=== PATIENT | male | born 1995 | race Caucasian/White ===

== ENCOUNTER 2016-10-22 13:18 | Emergency (ER) | payer BC ==
[2016-10-22 13:39] VITALS: BP 142/81
--- NOTE | 2016-10-22 14:15 | RAD ---
INDICATION: Left ankle pain and swelling one day after twisting injury COMPARISON: None. TECHNIQUE: 3 views of the left ankle were obtained. FINDINGS: The well corticated bones exhibit normal alignment. Joint spaces appear maintained. No fracture is seen. IMPRESSION: Normal ankle radiograph. If the patient's symptoms persist, follow-up imaging is recommended.
--- NOTE | 2016-10-26 07:20 | UC ---
Lower Extremity/Ankle HPI - HPI Summary HPI Summary: left ankle pain x 1 day inversion left ankle injury one day ago + pain and swelling of the left ankle - History of Current Complaint Chief Complaint: UCLowerExtremity Stated Complaint: LEFT ANKLE INJURY Time Seen by Provider: 10/22/16 13:50 Hx Obtained From: Patient Onset/Duration: Sudden Onset, Lasting Days - 1, Still Present Severity Initially: Moderate Severity Currently: Moderate Pain Intensity: 2 Pain Scale Used: 0-10 Numeric Aggravating Factor(s): Standing, Ambulation Alleviating Factor(s): Rest, Elevation, Ice Able to Bear Weight: Yes - Allergies/Home Medications Allergies/Adverse Reactions: Allergies Allergy/AdvReac Type Severity Reaction Status Date / Time Metoclopramide [From BedyCasalan] Allergy Agitation Verified 10/22/16 13:32 Prochlorperazine Allergy Agitation Verified 10/22/16 13:32 [From Compazine] Home Medications: Home Medications Ibuprofen TAB* [Advil TAB*] 400 mg PO Q6H PRN 10/22/16 [History Confirmed ] PMH/Surg Hx/FS Hx/Imm Hx Previously Healthy: Yes - Surgical History Surgical History: Yes Surgery Procedure, Year, and Place: t/a - Family History Known Family History: Positive: Hypertension - Social History Alcohol Use: Weekly Substance Use Type: Marijuana Substance Use Comment - Amount & Last Used: OCCASIONAL Smoking Status (MU): Never Smoked Tobacco Review of Systems Constitutional: Negative Skin: Negative Eyes: Negative ENT: Negative Respiratory: Negative Cardiovascular: Negative Gastrointestinal: Negative Genitourinary: Negative Motor: Negative Neurovascular: Negative Musculoskeletal: Arthralgia - left ankle pain Neurological: Negative Psychological: Negative All Other Systems Reviewed And Are Negative: Yes Physical Exam Triage Information Reviewed: Yes Appearance: Well-Appearing, No Pain Distress, Well-Nourished Vital Signs: Initial Vital Signs Temp 98.8 F 10/22/16 13:33 Pulse 64 10/22/16 13:33 Resp 18 10/22/16 13:33 BP 142/81 10/22/16 13:33 Pulse Ox 97 10/22/16 13:33 Vital Signs Reviewed: Yes Eye Exam: Normal Eyes: Positive: Conjunctiva Clear ENT: Positive: Normal ENT inspection, Hearing grossly normal, Pharynx normal Neck exam: Normal Respiratory: Positive: Chest non-tender, Lungs clear, Normal breath sounds Cardiovascular: Positive: RRR, No Murmur, Pulses Normal Musculoskeletal: Positive: Other: - left ankle : + swelling lateral ankle , + tenderness lateral ankle , goot ROM , decrease strength Skin Exam: Normal Lower Extremity Course/Dx - Differential Dx/Diagnosis Provider Diagnoses: left ankle sprain Discharge - Discharge Plan Condition: Stable Disposition: HOME Patient Education Materials: Ankle Sprain (ED) Forms: *Work Release Referrals: [facility] [[employer], APPLICATION, OTHER] - 7 Days
== END 2016-10-22 14:38 | disposition home or self-care (01) ==
LOC: UCCORT 13:18
DX: S93.402A Sprain of unspecified ligament of left ankle, initial encounter (principal); X58.XXXA Exposure to other specified factors, initial encounter; Y93.9 Activity, unspecified; Y92.9 Unspecified place or not applicable; Z88.8 Allergy status to other drugs, medicaments and biological substances
CPT/HCPCS: 99213; G0463

== ENCOUNTER 2017-08-08 14:39 | Emergency (ER) | payer BC ==
[2017-08-08 15:07] VITALS: BP 124/65
[2017-08-08] MEDS ORDERED: Ondansetron ODT TAB* 4 MG PO ONE (15:53)
[2017-08-08] MEDS ORDERED: Naproxen TAB* 250 MG PO ONE (15:53)
--- NOTE | 2017-08-08 16:04 | UC ---
Headache HPI - HPI Summary HPI Summary: 21 year old male with history of migraine here with headache since yesterday. Patient reports bilateral, throbbing headache with nausea and one episode of vomiting. He reports he gets headache like this 1-2/year. No phonophobiba or photophobia but reports osmophobia. No weakness or paresthesia. - History Of Current Complaint Chief Complaint: UCHeadache Stated Complaint: MIGRAINE Time Seen by Provider: 08/08/17 15:46 Onset/Duration: Sudden Onset, Gradual Onset Onset Of Symptoms: Gradual Pain Intensity: 9 Timing: Constant Character: Throbbing Location of Headache: Temporal Associated Signs And Symptoms: Positive: Nausea - Allergies/Home Medications Allergies/Adverse Reactions: Allergies Allergy/AdvReac Type Severity Reaction Status Date / Time metoclopramide [From Reglan] Allergy Agitation Verified 08/08/17 15:07 prochlorperazine Allergy Agitation Verified 08/08/17 15:07 PMH/Surg Hx/FS Hx/Imm Hx Previously Healthy: No - Surgical History Surgical History: Yes Surgery Procedure, Year, and Place: ear tubes. tonsillectomy with adenoid removal - Family History Known Family History: Positive: Hypertension - Social History Alcohol Use: Weekly Substance Use Type: Marijuana Substance Use Comment - Amount & Last Used: OCCASIONAL Smoking Status (MU): Never Smoked Tobacco Review of Systems Constitutional: Negative Skin: Negative Eyes: Negative ENT: Negative Respiratory: Negative Cardiovascular: Negative Gastrointestinal: Negative Genitourinary: Negative Motor: Negative Neurovascular: Negative Musculoskeletal: Negative Neurological: Headache Psychological: Negative All Other Systems Reviewed And Are Negative: Yes Physical Exam Triage Information Reviewed: Yes Appearance: Well-Appearing, No Pain Distress Vital Signs: Initial Vital Signs Temp 37.2 C 08/08/17 15:01 Pulse 61 08/08/17 15:01 Resp 20 08/08/17 15:01 BP 124/65 08/08/17 15:01 Pulse Ox 100 08/08/17 15:01 Eye Exam: Normal Respiratory Exam: Normal Cardiovascular Exam: Normal Abdominal Exam: Normal Musculoskeletal Exam: Normal Neurological Exam: Normal Skin Exam: Normal Headache Course/Dx - Differential Dx/Diagnosis Differential Diagnosis/HQI/PQRI: Migraine, Sinus Headache, Tension Headache Provider Diagnoses: Migraine Discharge - Sign-Out/Discharge Documenting (check all that apply): Discharge/Admit/Transfer - Discharge Plan Condition: Good Disposition: HOME Prescriptions: Naproxen [Naproxen 500 mg tab] 500 mg PO BID PRN #20 tablet PRN Reason: Headache Ondansetron [Zofran Odt] 4 mg PO Q8HR PRN #20 tab.rapdis PRN Reason: Nausea Patient Education Materials: Migraine Headache (ED) Forms: *Work Release Referrals: No Primary Care Phys,NOPCP [Primary Care Provider] - - Billing Disposition and Condition Condition: GOOD Disposition: HOME
== END 2017-08-08 16:18 | disposition home or self-care (01) ==
LOC: UCCORT 14:39
DX: G43.909 Migraine, unspecified, not intractable, without status migrainosus (principal); Z88.8 Allergy status to other drugs, medicaments and biological substances
CPT/HCPCS: 99212; A9270-GY; G0463

== ENCOUNTER 2018-06-21 09:39 | Emergency (ER) | payer BC ==
[2018-06-21 09:56] VITALS: BP 124/68
[2018-06-21] MEDS ORDERED: Ketorolac INJ* 30 MG/ML 1 ML VIAL IM ONE (10:08)
[2018-06-21] MEDS ORDERED: Ondansetron ODT TAB* 4 MG PO ONE (10:09)
--- NOTE | 2018-06-21 10:18 | UC ---
Headache HPI - HPI Summary HPI Summary: Long history of migraine since age 10. Mother and grandmother has history of them. This started 5am. Feels similar to prior. No fever or neck stiffness. No neurologic defecits. - History Of Current Complaint Chief Complaint: UCHeadache Stated Complaint: MIGRAINE Time Seen by Provider: 06/21/18 09:48 Hx Obtained From: Patient Onset/Duration: Other - Awoke from sleep. Initially Headache Was: Moderate Pain Intensity: 4 Timing: Constant Character: Typical Headache, Migraine Location of Headache: Temporal Aggravating Factor(s): Bright Lights, Other - smells. Allevating Factor(s): Rest, Medication Associated Signs And Symptoms: Positive: Nausea, Vomiting. Negative: Fever, Neck Pain, Neck Stiffness, Decreased LOC, Visual Changes - Allergies/Home Medications Allergies/Adverse Reactions: Allergies Allergy/AdvReac Type Severity Reaction Status Date / Time metoclopramide [From Reglan] Allergy Agitation Verified 08/08/17 15:07 prochlorperazine Allergy Agitation Verified 08/08/17 15:07 PMH/Surg Hx/FS Hx/Imm Hx Previously Healthy: No - migraine. - Surgical History Surgical History: Yes Surgery Procedure, Year, and Place: ear tubes. tonsillectomy with adenoid removal - Family History Known Family History: Positive: Hypertension, Other - migraines. - Social History Alcohol Use: Weekly Alcohol Amount: 2 Substance Use Type: Marijuana Substance Use Comment - Amount & Last Used: OCCASIONAL-last usw was 06/19/18 Smoking Status (MU): Never Smoked Tobacco Review of Systems All Other Systems Reviewed And Are Negative: Yes Neurological: Positive: Headache Physical Exam Triage Information Reviewed: Yes Appearance: No Pain Distress, Well-Nourished, Pain Distress - Non toxic and pleasant but holding head with lights off sitting up. Vital Signs: Initial Vital Signs Temp 98.7 F 06/21/18 09:48 Pulse 52 06/21/18 09:48 Resp 20 06/21/18 09:48 BP 124/68 06/21/18 09:48 Pulse Ox 99 06/21/18 09:48 Vital Signs Reviewed: Yes Eyes: Positive: Conjunctiva Clear, Other: - JAIRO. Fundoscopic tamir no papilledema. ENT Exam: Normal ENT: Positive: Hearing grossly normal, Pharynx normal, Pharyngeal erythema, TMs normal, Uvula midline. Negative: Nasal congestion, Nasal drainage, TM bulging, TM dull, TM red, Tonsillar swelling, Tonsillar exudate, Trismus, Muffled voice, Sinus tenderness Neck exam: Normal Neck: Positive: Supple, Nontender, No Lymphadenopathy. Negative: Nuchal Rigidity Respiratory: Positive: Lungs clear, Normal breath sounds, No respiratory distress, No accessory muscle use, Respiratory distress, Decreased breath sounds Cardiovascular: Positive: No Murmur, Pulses Normal, Brisk Capillary Refill Abdomen Description: Positive: No Organomegaly, Soft. Negative: Distended, Guarding Musculoskeletal: Positive: Strength Intact, ROM Intact, No Edema Neurological: Positive: Alert, Muscle Tone Normal. Negative: Fatigued Psychological: Positive: Age Appropriate Behavior Skin: Negative: Rashes Headache Course/Dx - Differential Dx/Diagnosis Provider Diagnosis: Migraine Discharge - Sign-Out/Discharge Documenting (check all that apply): Patient Departure All imaging exams completed and their final reports reviewed: No Studies - Discharge Plan Condition: Good Disposition: HOME Prescriptions: Naproxen [Naproxen 500 mg tab] 500 mg PO BID PRN #20 tablet PRN Reason: Headache Ondansetron ODT TAB* [Zofran 4 MG Odt TAB*] 4 mg PO Q8H PRN #12 tab.odt PRN Reason: Headache SUMAtriptan TAB* [Imitrex TAB*] 50 mg PO BID PRN #12 tab PRN Reason: Headache Patient Education Materials: Migraine Headache (ED) Referrals: No Primary Care Phys,NOPCP [Primary Care Provider] - [facility] [place] [facility] [Outside] - Billing Disposition and Condition Condition: GOOD Disposition: Home
== END 2018-06-21 10:43 | disposition home or self-care (01) ==
LOC: UCCORT 09:39
DX: G43.909 Migraine, unspecified, not intractable, without status migrainosus (principal); Z88.8 Allergy status to other drugs, medicaments and biological substances
CPT/HCPCS: 96372; 99212; A9270-GY; G0463; J1885

== ENCOUNTER 2018-09-06 11:57 | Emergency (ER) | payer BC ==
[2018-09-06 12:10] VITALS: BP 137/86
--- NOTE | 2018-09-06 12:20 | UC ---
Ear Complaint HPI - HPI Summary HPI Summary: 22-year-old male who has had cold symptoms over the past few days and today his left ear is clogged. He denies any pain or fever. - History of Current Complaint Chief Complaint: UCEar Stated Complaint: EAR PAIN Time Seen by Provider: 09/06/18 12:16 Hx Obtained From: Patient Onset/Duration: Gradual Onset Severity Initially: Mild Severity Currently: Mild Pain Intensity: 0 Aggravating Factors: Nothing Alleviating Factors: Nothing Associated Signs/Symptoms: Positive: Hearing Loss - Allergies/Home Medications Allergies/Adverse Reactions: Allergies Allergy/AdvReac Type Severity Reaction Status Date / Time metoclopramide [From Reglan] Allergy Agitation Verified 09/06/18 12:09 prochlorperazine Allergy Agitation Verified 09/06/18 12:09 PMH/Surg Hx/FS Hx/Imm Hx Previously Healthy: Yes Neurological History: Migraine - Surgical History Surgical History: Yes Surgery Procedure, Year, and Place: ear tubes. tonsillectomy with adenoid removal - Family History Known Family History: Positive: Hypertension, Other - migraines. - Social History Alcohol Use: Weekly Alcohol Amount: 2 Substance Use Type: Marijuana Substance Use Comment - Amount & Last Used: OCCASIONAL Smoking Status (MU): Never Smoked Tobacco Review of Systems All Other Systems Reviewed And Are Negative: Yes ENT: Positive: Nasal Discharge - Head congestion over the past few days and left ear clogged today but no ear pain., Other Is Patient Immunocompromised?: No Physical Exam Triage Information Reviewed: Yes Appearance: Well-Appearing, No Pain Distress, Well-Nourished Vital Signs: Initial Vital Signs Temp 98 F 09/06/18 12:05 Pulse 67 09/06/18 12:05 Resp 14 09/06/18 12:05 BP 137/86 09/06/18 12:05 Pulse Ox 98 09/06/18 12:05 Vital Signs Reviewed: Yes Eyes: Positive: Conjunctiva Clear ENT: Positive: Hearing grossly normal, Pharynx normal, TM red - Left tympanic membrane with erythema and moderate landmarks., Uvula midline Neck: Positive: Supple, Nontender, No Lymphadenopathy Respiratory: Positive: Lungs clear, Normal breath sounds, No respiratory distress, No accessory muscle use Cardiovascular: Positive: RRR, No Murmur, Pulses Normal, Brisk Capillary Refill Musculoskeletal Exam: Normal Neurological Exam: Normal Psychological Exam: Normal Skin Exam: Normal Ear Complaint Course/Dx - Course Course Of Treatment: I'm going to treat patient with amoxicillin 875 mg by mouth twice a day 10 days. He is to follow-up with his primary care provider in one week no improvement. - Differential Dx/Diagnosis Provider Diagnosis: Left otitis media Discharge - Sign-Out/Discharge Documenting (check all that apply): Patient Departure All imaging exams completed and their final reports reviewed: No Studies - Discharge Plan Condition: Fair Disposition: HOME Prescriptions: Amoxicillin PO (*) [Amoxicillin 875 MG (*)] 875 mg PO BID 10 Days #20 tab Patient Education Materials: Ear Infection (ED) Referrals: No Primary Care Phys,NOPCP [Primary Care Provider] - [facility] [Outside] Additional Instructions: May take Tylenol every 4 hours and Motrin every 8 hours for pain as needed. Follow-up with your primary care provider if no improvement in 1 week or sooner if worsening symptoms. - Billing Disposition and Condition Condition: FAIR Disposition: Home - Attestation Statements Provider Attestation: Per institutional requirements, I have reviewed the chart, however, I was not consulted specifically or made aware of this patient by the midlevel provider. I did not personally evaluate, interact with , or disposition this patient.
== END 2018-09-06 12:28 | disposition home or self-care (01) ==
LOC: UCCORT 11:57
DX: H66.92 Otitis media, unspecified, left ear (principal)
CPT/HCPCS: 99212; G0463

== ENCOUNTER 2018-09-14 19:35 | Emergency (ER) | payer BC ==
[2018-09-14 20:11] VITALS: BP 141/80
--- NOTE | 2018-09-14 20:20 | UC ---
Ear Complaint HPI - HPI Summary HPI Summary: 22-year-old male who had an otitis media and took a ten-day course of amoxicillin. He states that his left ear still feels plugged but he has no pain. He denies any history of recent allergies however states he did have allergies as a child. - History of Current Complaint Chief Complaint: UCEar Stated Complaint: RE-CK EAR AND SINUS COMPLAINT Time Seen by Provider: 09/14/18 20:07 Hx Obtained From: Patient Onset/Duration: Gradual Onset Severity Initially: Mild Severity Currently: Mild Pain Intensity: 0 Aggravating Factors: Nothing Alleviating Factors: Nothing Associated Signs/Symptoms: Positive: URI Symptoms - Allergies/Home Medications Allergies/Adverse Reactions: Allergies Allergy/AdvReac Type Severity Reaction Status Date / Time metoclopramide [From Reglan] Allergy Agitation Verified 09/14/18 20:06 prochlorperazine Allergy Agitation Verified 09/14/18 20:06 PMH/Surg Hx/FS Hx/Imm Hx Previously Healthy: Yes - Surgical History Surgical History: Yes Surgery Procedure, Year, and Place: ear tubes. tonsillectomy with adenoid removal - Family History Known Family History: Positive: Hypertension, Other - migraines. - Social History Alcohol Use: Weekly Alcohol Amount: once/week Substance Use Type: Marijuana Substance Use Comment - Amount & Last Used: OCCASIONAL Smoking Status (MU): Never Smoked Tobacco Review of Systems All Other Systems Reviewed And Are Negative: Yes ENT: Positive: Other - Patient denies ear pain but states that his left ear still feels plugged. Is Patient Immunocompromised?: No Physical Exam Triage Information Reviewed: Yes Appearance: Well-Appearing, No Pain Distress, Well-Nourished Vital Signs: Initial Vital Signs Temp 99.1 F 09/14/18 20:06 Pulse 70 09/14/18 20:06 Resp 16 09/14/18 20:06 BP 141/80 09/14/18 20:06 Pulse Ox 99 09/14/18 20:06 Vital Signs Reviewed: Yes Eyes: Positive: Conjunctiva Clear ENT: Positive: Pharynx normal, Uvula midline, Other - Tympanic membranes bilaterally are injected but with good landmarks and are mildly translucent. Neck: Positive: Supple, Nontender, No Lymphadenopathy Respiratory: Positive: Lungs clear, Normal breath sounds, No respiratory distress, No accessory muscle use Cardiovascular: Positive: RRR, No Murmur, Pulses Normal, Brisk Capillary Refill Musculoskeletal Exam: Normal Neurological Exam: Normal Psychological Exam: Normal Skin Exam: Normal Ear Complaint Course/Dx - Course Course Of Treatment: I believe the patient's ear infection is pretty much cleared up however he's going to try some Flonase for possible allergy symptoms 2 sprays in each nostril once a day for a week and then decrease to 1 spray in each nostril once a day for a week. He is to follow-up with Dr. Capone which is his preference to stay in [place] in one week if no improvement. - Differential Dx/Diagnosis Provider Diagnosis: Allergic rhinitis Discharge - Sign-Out/Discharge Documenting (check all that apply): Patient Departure All imaging exams completed and their final reports reviewed: No Studies - Discharge Plan Condition: Fair Disposition: HOME Prescriptions: Fluticasone NASAL SPRAY 50MCG* [Flonase NASAL SPRAY 50MCG*] 2 spray BOTH NARES DAILY 7 Days #1 btl Patient Education Materials: Allergic Rhinitis (DC) Referrals: Daniel Capone MD [Medical Doctor] - No Primary Care Phys,NOPCP [Primary Care Provider] - Additional Instructions: Follow-up with Dr. Capone in [place] if no improvement in symptoms in one week. - Billing Disposition and Condition Condition: FAIR Disposition: Home
== END 2018-09-14 20:23 | disposition home or self-care (01) ==
LOC: UCCORT 19:35
DX: J30.9 Allergic rhinitis, unspecified (principal)
CPT/HCPCS: 99212; G0463